=== PATIENT | male | born 1985 | race Caucasian/White ===

== ENCOUNTER 2017-03-01 11:43 | Emergency (ER) | payer BC ==
[~2017-03-01] VITALS: Ht 167.6 cm; Wt 108.9 kg
[2017-03-01 11:50] VITALS: BP 159/103
[2017-03-01] MEDS ORDERED: CEPH-264 PO (12:15)
[2017-03-01] MEDS ORDERED: METH4TAB2 PO (12:15)
--- NOTE | 2017-03-01 12:15 | PHYS DOC ---
Adult General Chief Complaint Chief Complaint: SKIN RASH/ABSCESS HPI HPI Patient is a 31 year old male who presents with complaint of possible infection to the left upper extremity. Patient states that he developed symptoms of contact dermatitis over one week ago. Patient states as a result of this that we developed a blister on the left forearm. This ruptured approximately 5 days ago. Patient states starting yesterday he noticed redness extending from the site of his left arm. Patient states that the redness is tender to touch and slightly warm. Patient denies any fever, nausea, vomiting, or weakness in the affected extremity. Patient states that he continues to have redness and itching to his lower extremities. Patient has been taking Daly and applying hydrocortisone to affected areas. Patient states despite treatment he has not gone away. Review of Systems Review of Systems Constitutional: Denies fever or chills [] Eyes: Denies change in visual acuity, redness, or eye pain [] HENT: Denies nasal congestion or sore throat [] Respiratory: Denies cough or shortness of breath [] Cardiovascular: Denies chest pain or edema [] GI: Denies abdominal pain, nausea, vomiting, bloody stools or diarrhea [] : Denies dysuria or hematuria [] Musculoskeletal: Denies back pain or joint pain [] Integument: Redness, lymphangitic streaking in left arm, redness and itching in bilateral lower extremities [] Neurologic: Denies headache, focal weakness or sensory changes [] Allergies Allergies Allergies Coded Allergies Type Severity Reaction Last Updated Verified No Known Drug Allergies 03/01/17 No Physical Exam Physical Exam Constitutional: Well developed, well nourished, no acute distress, non-toxic appearance. [] HENT: Normocephalic, atraumatic, bilateral external ears normal, oropharynx moist, no oral exudates, nose normal. [] Eyes: PERRLA, EOMI, conjunctiva normal, no discharge. [] Neck: Normal range of motion, no tenderness, supple, no stridor. [] Cardiovascular:Heart rate regular rhythm, no murmur [] Lungs & Thorax: Bilateral breath sounds clear to auscultation [] Abdomen: Bowel sounds normal, soft, no tenderness, no masses, no pulsatile masses. [] Skin: Warm, dry, no erythema, no rash. [] Back: No tenderness, no CVA tenderness. [] Extremities: Erythema and will formation throughout the lateral lower extremities, 1 cm erosion with lymphangitic streaking extending up forearm to medial aspect of left upper arm, mild tenderness to palpation, no purulent drainage from erosion. [] Neurologic: Alert and oriented X 3, normal motor function, normal sensory function, no focal deficits noted. [] Current Patient Data Vital Signs Vital Signs Date Time Temp Pulse Resp B/P (MAP) Pulse Ox O2 Delivery O2 Flow Rate FiO2 03/01/17 11:50 98.1 88 16 99 Room Air Lab Results Not performed EKG EKG Not performed [] Radiology/Procedures Radiology/Procedures Not performed [] Course & Med Decision Making Course & Med Decision Making Pertinent Labs and Imaging studies reviewed. (See chart for details) The patient has signs of possible secondary skin infection at blister site. Patient will be started on Keflex for treatment. Patient also will start on Medrol Dosepak for treatment of lower extremity contact dermatitis. Patient's blood pressure was found to be elevated in the emergency department. Patient denies any somatic symptoms consistent with malignant hypertension. Advised patient follow-up with primary doctor to have his blood pressure rechecked and to discuss potential need for hypertension medications at his visit. Patient agreed with this plan of care. Patient recommended follow-up in one week With primary doctor and return to emergency department for any worsening symptoms. Dragon Disclaimer Dragon Disclaimer This chart was dictated in whole or in part using Voice Recognition software in a busy, high-work load, and often noisy Emergency Department environment. It may contain unintended and wholly unrecognized errors or omissions. Departure Departure: Impression: Primary Impression: Lymphangitis Additional Impression: Contact dermatitis Disposition: 01 HOME, SELF-CARE Condition: STABLE Referrals: PCP,NO (PCP) Patient Instructions: Contact Dermatitis, Skin Infections Additional Instructions: Follow-up to primary doctor in 1 week for reevaluation. Your blood pressure was found to be elevated today. It is recommended that you follow-up with your primary doctor at your next appointment for reevaluation and to discuss possible need for starting blood pressure medication. Return to emergency department for any worsening symptoms. Scripts Methylprednisolone (MEDROL) 4 Mg Tab.ds.pk 1 PKG PO UD, #1 PKG Prov: JIMMY SALAS MD 03/01/17 Cephalexin (KEFLEX) 500 Mg Capsule 1 CAP PO TID, #21 CAP Prov: JIMMY SALAS MD 03/01/17 Problem Qualifiers Additional Impression: Contact dermatitis Contact dermatitis type: allergic Contact dermatitis trigger: non-food plants Qualified Codes: L23.7 - Allergic contact dermatitis due to plants, except food JIMMY SALAS MD Mar 01, 2017 12:15
== END 2017-03-01 12:25 | disposition home or self-care (01) ==
LOC: ER 11:43
DX: L25.9 Unspecified contact dermatitis, unspecified cause (principal); I89.1 Lymphangitis
CPT/HCPCS: 99283